=== PATIENT | female | born 1990 | race Caucasian/White ===

== ENCOUNTER → 2020-11-08 | Outpatient (REF) | payer OTHER | LOC: M SFHCRHEU 14:08 | PROVIDERS: ATTEND Internal Medicine | DX: R79.82 Elevated C-reactive protein (CRP) (principal); R70.0 Elevated erythrocyte sedimentation rate ==

== ENCOUNTER → 2020-12-09 | Outpatient (CLI) | payer OTHER ==
--- NOTE | 2020-12-09 13:28 | REP ---
INDICATION: DORSALGIA. COMPARISON: None. TECHNIQUE: Multiple sequences obtained of the sacrum in the axial, coronal and sagittal planes. FINDINGS: There is no evidence of sacroiliitis. No bone marrow edema is seen. Incidental note is made of a lesion in the is hypointense on T1 and hyperintense on T2. Margins are very well defined. It measures approximately 11 x 4 mm upper coccyx which and is most consistent with a benign entity. Uterine length is approximately 7.9 cm. IUD is seen within the endometrial canal. No mass or adenopathy is seen in the visualized pelvis. No free fluid is visualized. IMPRESSION: Essentially unremarkable exam as discussed in detail above. Benign appearing bone lesion in the upper coccyx. <Electronically signed by Charly Ramos > 12/09/20 [id number]
== END ==
LOC: M RAD 11:35
PROVIDERS: ATTEND Internal Medicine
DX: M54.9 Dorsalgia, unspecified (principal); Z97.5 Presence of (intrauterine) contraceptive device; M85.88 Other specified disorders of bone density and structure, other site

== ENCOUNTER → 2021-03-08 | Outpatient (REF) | payer OTHER | LOC: M LAB REF 17:05 | PROVIDERS: ATTEND Otolaryngology | DX: M35.00 Sjogren syndrome, unspecified (principal) ==

== ENCOUNTER → 2021-06-21 | Outpatient (CLI) | payer OTHER | LOC: M RAD 11:57 | PROVIDERS: ATTEND Internal Medicine | DX: M75.80 Other shoulder lesions, unspecified shoulder (principal) ==